=== PATIENT | female | born 1995 | race Two or more races ===

== ENCOUNTER 2019-07-20 23:42 | Emergency (ER) | payer SELFPAY ==
[~2019-07-20] VITALS: Ht 160 cm; Wt 40.4 kg
[2019-07-21 00:17] VITALS: BP 107/73
[2019-07-21 01:01] LABS: INFLUENZA A PATIENT NEGATIVE (NEGATIVE); INFLUENZA B PATIENT NEGATIVE (NEGATIVE)
--- NOTE | 2019-07-21 01:07 | PHYS DOC ---
Past Medical History Past Medical History: No Pertinent History Past Surgical History: No Surgical History Alcohol Use: None Drug Use: None Adult General Chief Complaint Chief Complaint: COUGH HPI HPI Patient is a 24 year old female who presents with subjective fever, cough, body aches and sore throat for three days. She is also complaining of left lower gum dental pain for 3 months. Patient denies any trismus. Review of Systems Review of Systems Constitutional: Reports fever Eyes: Denies change in visual acuity, redness, or eye pain [] HENT: Reports left lower gum dental pain. Reports sore throat. Denies nasal congestion Respiratory: Reports cough, denies shortness of breath [] Cardiovascular: No additional information not addressed in HPI [] GI: Denies abdominal pain, nausea, vomiting, bloody stools or diarrhea [] : Denies dysuria or hematuria [] Musculoskeletal: Denies back pain or joint pain [] Integument: Denies rash or skin lesions [] Neurologic: Denies headache, focal weakness or sensory changes [] All other systems were reviewed and found to be within normal limits, except as documented in this note. Current Medications Current Medications Current Medications Medications (Trade) Dose Ordered Sig/Maritza Start Time Stop Time Status Last Admin Dose Admin Acetaminophen (Tylenol) 1,000 mg 1X ONCE 07/21/19 01:15 07/21/19 01:16 DC Amoxicillin (Amoxil) 500 mg 1X ONCE 07/21/19 01:15 07/21/19 01:16 DC Prednisone (Prednisone) 50 mg 1X ONCE 07/21/19 01:15 07/21/19 01:16 DC Allergies Allergies Allergies Coded Allergies Type Severity Reaction Last Updated Verified No Known Drug Allergies 07/21/19 No Physical Exam Physical Exam Constitutional: Well developed, well nourished, no acute distress, non-toxic appearance. [] HENT: Normocephalic, atraumatic, bilateral external ears normal, oropharynx moist, no oral exudates, nose normal. [] Eyes: PERRLA, EOMI, conjunctiva normal, no discharge. [] Neck: Normal range of motion, no tenderness, supple, no stridor. [] Cardiovascular:Heart rate regular rhythm, no murmur [] Lungs & Thorax: Bilateral breath sounds clear to auscultation [] Abdomen: Bowel sounds normal, soft, no tenderness, no masses, no pulsatile masses. [] Skin: Warm, dry, no erythema, no rash. [] Back: No tenderness, no CVA tenderness. [] Extremities: No tenderness, no cyanosis, no clubbing, ROM intact, no edema. [] Neurologic: Alert and oriented X 3, normal motor function, normal sensory function, no focal deficits noted. [] Psychologic: Affect normal, judgement normal, mood normal. [] Current Patient Data Vital Signs Vital Signs Date Time Temp Pulse Resp B/P (MAP) Pulse Ox O2 Delivery O2 Flow Rate FiO2 07/21/19 00:17 98.5 82 16 107/73 (84) 95 Room Air 98.5 Lab Values Laboratory Tests Test 07/21/19 00:01 Influenza Type A Antigen Negative (NEGATIVE) Influenza Type B Antigen Negative (NEGATIVE) EKG EKG [] Radiology/Procedures Radiology/Procedures [] Course & Med Decision Making Course & Med Decision Making Pertinent Labs and Imaging studies reviewed. (See chart for details) This is a 24-year-old female patient presented to the ED today with multiple complaints including body aches, sore throat cough and subjective fevers for 3 days as well as left lower gum dental pain for 3 months. Negative influenza test. Discharged with amoxicillin for the dental pain and instructed to follow- up with the dentist. OTC pain relievers Crispin Disclaimer Crispin Disclaimer This electronic medical record was generated, in whole or in part, using a voice recognition dictation system. Departure Departure Impression: Primary Impression: Fever Additional Impressions: Pharyngitis, acute Pain, dental Cough Disposition: HOME, SELF-CARE Condition: STABLE Referrals: NO PCP (PCP) follow up with a dentist or primary care doctor in 1-2 weeks Patient Instructions: Cough, Adult, [id number], Dental Caries-Brief, Fever, Adult Additional Instructions: You were evaluated in the emergency room, your influenza test is negative. We wrote a prescription for amoxicillin which will help clear the dental pain and some of the symptoms you have. Take the medication as prescribed until completed. Follow-up with the dentist of your choice in 2 weeks. Follow-up with your primary care doctor in 1-2 weeks Scripts Ondansetron (ONDANSETRON ODT) 4 Mg Tab.rapdis 1 TAB PO PRN Q6-8HRS, #16 TAB Prov: MUTUNGA,CHAD [employer] SKIMMER 07/21/19 Amoxicillin (AMOXICILLIN) 875 Mg Tablet 1 TAB PO BID, #20 TAB Prov: CHAD RAND APRN 07/21/19 Problem Qualifiers Primary Impression: Fever Fever type: unspecified Qualified Codes: R50.9 - Fever, unspecified Additional Impressions: Pharyngitis, acute Pharyngitis/tonsillitis etiology: unspecified etiology Qualified Codes: J02.9 - Acute pharyngitis, unspecified CHAD RAND APRN Jul 21, 2019 01:07
[2019-07-21] MEDS ORDERED: AMOX875T PO (01:12)
[2019-07-21] MEDS ORDERED: ACETAMINOPHEN 500 MG TABLET PO ONE (01:15)
[2019-07-21] MEDS ORDERED: AMOXICILLIN 250 MG CAPSULE. PO ONE (01:15)
[2019-07-21] MEDS ORDERED: predniSONE 10 MG TABLET PO ONE (01:15)
[2019-07-21] MEDS ORDERED: ONDA4TAB12 PO (01:23)
[2019-07-21] MEDS ORDERED: ONDANSETRON ODT 4 MG TAB.RAPDIS. PO ONE (01:30)
== END 2019-07-21 01:33 | disposition home or self-care (01) ==
LOC: ER 23:42
DX: J02.9 Acute pharyngitis, unspecified (principal); K08.89 Other specified disorders of teeth and supporting structures; R50.9 Fever, unspecified; R05 Cough
CPT/HCPCS: 87804; 99284; J7512; Q0162